=== PATIENT | male | born 1970 | race Caucasian/White ===

== ENCOUNTER 2017-10-19 16:45 | Observation (INO) | payer OTHER, SELFPAY ==
[2017-10-19] VITALS (15 sets, daily range): BP systolic 105–139; BP diastolic 55–76; PULSE 56–79; RESP 16–22; TEMP 36.6–37.1; O2SAT 95–97; BMI 26.6; BMI 26.9; BMI 27.0
--- NOTE | 2017-10-19 17:19 | EKG12_ITS ---
Test Reason : CP Blood Pressure : / mmHG Vent. Rate : 063 BPM Atrial Rate : 063 BPM P-R Int : 164 ms QRS Dur : 102 ms QT Int : 420 ms P-R-T Axes : 069 004 214 degrees QTc Int : 429 ms Normal sinus rhythm Nonspecific T wave abnormality Abnormal ECG Confirmed by RICKY LUCIANO, JESSE ([id number]), electronic news gathering editor JAY SALINAS ([id number]) on 10/21/2017 2:59:19 PM Referred By: URI/LEONIDAS Confirmed By:JESSE GARCÍA MD
--- NOTE | 2017-10-19 17:20 | RAD_ITS ---
STUDY: X-RAY CHEST REASON FOR EXAM: Male, 47 years old. Chest pain TECHNIQUE: Single AP portable view of the chest. COMPARISON: The prior study of 07/13/2017 FINDINGS: mind reader leads are seen. The lungs are clear and expanded. There is no demonstrated pleural abnormality. Normal size heart. Normal mediastinum and rogelio. Normal visualized pulmonary arteries. Normal visualized aortic arch and descending thoracic aorta. Normal visualized thoracic spine. Normal visualized ribs, clavicles, and shoulders. There is no demonstrated abnormality of the visualized soft tissue structures of the upper abdomen. RAD/Chest 1 View (Portable) IMPRESSION: Normal x-ray examination of the chest. Electronically Signed: Malachi Shah MD at 17:45 EDT , Service support ,
--- NOTE | 2017-10-19 17:23 | ED.DCSUM_ITS ---
- ER Visit Summary Date of Service: 10/19/17 Chief Complaint: Chest pain History of Present Illness: The patient is a 47 M chest pain started this morning at 8 AM. States pressure sensation with no radicular symptoms. States mild dyspnea. No nausea or diaphoresis. Symptoms went away, however return at 1120 waxing waning since then. Pain is currently 4 out of 10. No history of hypertension, diabetes, hypercholesteremia, tobacco or family history. He does have a history of neuroblastoma as a child along with renal cell carcinoma with a right nephrectomy. Chemo last done June 2013. No history of DVT or PE. was admitted in July for similar symptoms with a workup. Found to have echocardiogram with an EF of 25%. Stress test was negative. He states he has a follow-up with cardiology at [facility] Dr. Jaquez for repeat echocardiogram. No heart cath in the past. Physical Examination: General: Alert and oriented ?3, no acute distress HEENT: Normocephalic, atraumatic. Moist mucosa membranes Neck: supple, nontender. Cardiovascular: Regular rate and rhythm, no murmurs Respiratory: Normal breath sounds, symmetric, no distress Abdomen: Soft, nontender, nondistended Extremities: Nontender, no edema, pulses intact ?4 Neuro: no focal neurological deficits. Test Results: EKG: Sinus rate of 63, no ST changes. T-wave inversions on inferior lateral leads. Cardiac workup negative. Chest x-ray negative. Emergency Department Course and Treatment: Patient with chronic EKG changes from comparison in July. I did evaluate records noting confirm global hypokinesis in July with EF of 25%. Cardiac workup negative. Aspirin nitro given. Patient went down to 1 after nitro series, nitro paste was placed. Head CT obtained due to his complaints of stuttering and off balance with cancer history. Return with no acute findings. He has no focal neurological deficits. I did speak with covering international flight attendant, Dr. Blanton, recommended with his cardiomyopathy is high risk. Recommended serial troponins and for Dr. Son to see him tomorrow for recommendations. Discussed with hospitalist, Dr. Dennison who will admit for inpatient management. Treatment Plan: [] Disposition: Admission Impression: 1. Acute chest pain 2. History of cardiomyopathy This note was generated with ScreenHitsation software. It may contain incorrect words, spelling, and punctuation that were not noted in review of the chart prior to signing ED Disposition - Plan for ED Patient: Disposition: Acute Care [facility] Chief Complaint: Chest Pain Diagnosis: Chest pain, History of cardiomyopathy Referrals: Waldo Rivas MD [NON-STAFF] -
[2017-10-19 17:33] LABS: Absolute Neutrophil Count 4.6 X10^3/uL (2.0-7.7); Basophil# 0.02 X10^3/uL; Basophil% 0.3 % (0-1); Eosinophil# 0.04 X10^3/uL; Eosinophils% 0.6 % (0-5); Hematocrit 40.6 % (40-54); Hemoglobin 14.7 g/dl (13.0-16.5); Lymphocyte % 27.6 % (19-41); Mean Corp Hgb Conc 36.2 g/gl (32-36); Mean Corpuscular Hgb 31.2 pg (27.0-32.0); Mean Corpuscular Volume 86.2 fL (80-94); Mean Platelet Vol. 10.2 fl (6.2-12.0); Monocyte# 0.55 X10^3/uL; Monocyte% 7.6 % (0-10); Neutrophil # 4.62 X10^3/uL (2.7-7.7); Neutrophil % 63.8 % (47-70); POSITIVE COUNT NO; POSITIVE DIFFERENTIAL NO; POSITIVE MORPHOLOGY NO; Platelet Count 281 K/mm3 (150-450); RBC Distribution Width CV 12.5 % (11.6-14.6); RBC Distribution Width SD 38.8 fl (35.1-43.9); Red Blood Count 4.71 M/mm3 (4.6-6.2); White Blood Count 7.2 K/mm3 (4.4-11.0)
[2017-10-19 17:44] LABS: Anion Gap 7 (5-15); BUN 30 mg/dL (7-18); BUN/Creat Ratio 21.6 RATIO (10-20); Calcium,Total 8.8 mg/dL (8.5-10.1); Chloride 103 mmol/L (98-107); Creatinine, Serum 1.39 mg/dL (0.70-1.30); EST Glomerular Filtration Rate 59 mL/min (>60); Est Glom Filt Rate - Afr Amer 71 mL/min (>60); Estimated Creatinine Clearance 60.56 ml/min; Glucose 126 mg/dL (74-106); Potassium 3.4 mmol/L (3.5-5.1); Sodium Level 140 mmol/L (136-145)
[2017-10-19] MEDS: Aspirin 81 MG TAB.CHEW 324 MG PO (17:48)
--- NOTE | 2017-10-19 17:49 | CT_ITS ---
STUDY: CT BRAIN WITHOUT CONTRAST REASON FOR EXAM: Male, 47 years old. Off-balance, chest pain RADIATION DOSAGE (If Supplied By Facility): CTDIvol = ( 44.99 ) mGy, DLP = ( 812.98 ) mGycm TECHNIQUE: Transaxial CT imaging of the brain was performed without administration of intravenous contrast material. Individualized dose optimization techniques were used for this CT. COMPARISON: None. FINDINGS: Normal soft tissue structures. There is evidence of an old right frontal craniotomy. Normal size ventricles and extra-axial spaces for the patient's age. Normal white matter tracts of the cerebral hemispheres. Normal basal ganglia and thalami. Normal brainstem. Normal cerebellum. There is no intracranial hemorrhage. There are no findings of an acute ischemic infarction. Normal visualized paranasal sinuses. CT/Brain/Head without Contrast IMPRESSION: Old right craniotomy. The study is otherwise unremarkable. Electronically Signed: Malachi Shah MD at 19:02 EDT , Service support ,
[2017-10-19] MEDS: 0.9% Normal Saline 1,000 ML 150 ML IV (17:50)
[2017-10-19] MEDS: Nitroglycerin Oint 1 INCH PACKET TRANSDERM. (18:54)
--- NOTE | 2017-10-19 19:13 | PCM.HP.STD ---
Problem List (1) Neuroblastoma Status: Chronic (2) HTN (hypertension) Status: Chronic Qualifiers: Hypertension type: essential hypertension Qualified Code(s): I10 - Essential (primary) hypertension (3) Hypogonadism Status: Chronic (4) Non-ischemic cardiomyopathy Status: Chronic (5) Renal cell carcinoma Status: Chronic Qualifiers: Laterality: left Qualified Code(s): C64.2 - Malignant neoplasm of left kidney, except renal pelvis (6) Solitary kidney Status: Chronic (7) Chest pain Status: Acute Qualifiers: Chest pain type: unspecified Qualified Code(s): R07.9 - Chest pain, unspecified History of Present Illness Date of Admission: 10/19/17 Chief Complaint: Chest Pain The patient is a 47 y/o M w/ PMHx: Non-ischemic cardiomyopathy, Neuroblastoma in youth s/p craniotomy, Solitary Kidney, Renal cell carcinoma s/p R nephrectomy, HTN, Hypothyroidism, s/p renal gland resection maintained on testosterone supplementation who presents to the [facility] ED on 10/19/17 with mid-sternal region chest discomfort, described as pressure sensation in addition to occasional sharp focal central stabbing discomfort which is short in duration, no radiation, associated mild nausea and dyspnea, intermittent x 2 days, upon presentation to the ED rated 8/10 in intensity but resolved with NG administration-->1/10 with short burst 3/4 that last seconds and resolve. He notes this episode is similar but less severe than 07/2017 chest pain presentation. He at that time also notes having mild confusion and was anxious which is similar to current presentation with his discomfort. He does admit to increased stress recently. 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 In the ED work-up included AF, HR 70-->60s, BP 118.75, RR 16, 96% on RA, unremarkable CBC, BMP w/ K 3.4, BUN/Cr 30/1.39, glucose 126, trop < 0.02, unremarkable CXR, CT brain w/ prior R craniotomy, EKG w/ SR with chronic stable inferiolateral T wave inversions. In the ED patient administered 1L NS, nitrobid, NG SL, ASA. Past Medical History Past Medical History (Chronic Problems): Chronic Problems (Last Reviewed 08/01/17 @ 13:48 by Calos Son MD) Neuroblastoma (Chronic) HTN (hypertension) (Chronic) Hypogonadism (Chronic) Dizziness (Chronic) Dyspnea (Chronic) Non-ischemic cardiomyopathy (Chronic) Renal cell carcinoma (Chronic) Solitary kidney (Chronic) Allergies Opioids - Morphine Analogues Adverse Reaction (Verified 10/19/17 16:46) Other N/V/HALLUCINATIONS sedation Adverse Reaction (Uncoded 10/19/17 16:46) Other SLOW TO COME OUT OF Home Medications: Ambulatory Orders Medication Instructions Recorded Anastrozole [Arimidex] 0.5 mg PO SUWEFR 07/13/17 Testosterone Cypionate 0.4 ml IM QWEEK 07/13/17 Thyroid [[place] Thyroid] 90 mg PO DAILY 07/13/17 Lisinopril [Zestril] 2.5 mg PO DAILY #30 tab 07/14/17 torsemide 20 mg tablet 20 mg PO QDAY 08/01/17 Carvedilol [Coreg (Beta Vince)] 6.25 mg PO BID 10/19/17 Eplerenone [Eplerenone] 25 mg PO DAILY 10/19/17 Surgical History: - - R Neprectomy, adrenalectomy, craniotomy. Psychiatric History: No pertinent psych hx Lives: With Family Smoking Status: Never smoker Alcohol: None Drugs: None - *Family History Paternal History Items: No pertinent history Maternal History Items: No pertinent history Review of Systems Constitutional: Reports: Fatigue. Denies: Chills, Fever, Weight Change HEENT: Denies: Head Aches, Sinus Congestion, Sinus Drainage Cardiovascular: Reports: Chest Pain, Chest Pressure. Denies: Palpitations Respiratory: Reports: Shortness of Breath, Shortness of breath at rest, Shortness of breath upon exertion. Denies: Cough, Sputum production Gastrointestinal: Reports: Nausea. Denies: Abdominal Pain, Vomiting Genitourinary: Denies: Dysuria Musculoskeletal: Denies: Joint Pain, Joint Tenderness Skin: Denies: Rash, Wounds Neurological: Denies: Numbness, Tingling, Focal weakness Psychiatric: Reports: Anxiety. Denies: Depression, Homicidal Ideations, Suicidal Ideations Hematologic/ Lymphatic: Denies: Easy Bruising, Easy Bleeding VTE Information - Inpt Only VTE Present on Admission: No VTE Mechan Device Prophylaxis: SCD's VTE Pharm Prophylaxis ordered?: Yes Patient Problems: Active and Suspected Problems (Last Reviewed 08/01/17 @ 13:48 by Calos Son MD) Chest pain (Acute) History of cardiomyopathy (Acute) Subjective: Seated upright in the ED bed, mildly anxious, notes chest pain has improved, 07/16. Objective: Physical Examination: General: awake, alert, oriented x 3 and cooperative, seated upright in the ED bed in no apparent distress, mildly anxious. Skin: normal color, turgor, no icterus, cyanosis. HEENT: AT/NC, EOMI, PERRLA, MMM, no carotid bruits or JVD noted. Lungs: CTA bilaterally, moderate effort, mild decrease BL bases, no rales, ronchi or wheezing. Heart: Tegular rate and rhythm; no gallop, rub audible. Abdomen: soft, NTTP, ND, normal BS, no HSM. Extremities: no cyanosis, clubbing, or edema. Neurological: patient awake, alert, oriented x 3; cognitive function intact; pupils equally reactive to light and accomodation; cranial nerves II-XII grossly normal, moving all 4 extremities, no focal deficits, strength preserved. Psychiatric: affect appears mildly anxious, notes increased stress recently, no acute evidence of depressive feelings. - Physical Exam Vital Signs Temp Pulse Resp BP Pulse Ox 98.8 F 60 16 109/68 96 10/19/17 16:46 10/19/17 18:54 10/19/17 17:58 10/19/17 18:54 10/19/17 17:58 Oxygen Delivery Method Room Air Weight: 165 lb Body Mass Index (BMI) 26.6 Laboratory Tests Past 24 Hrs 10/19/17 10/19/17 16:59 16:59 WBC 7.2 RBC 4.71 Hgb 14.7 Hct 40.6 MCV 86.2 MCH 31.2 MCHC 36.2 H RDW 12.5 RDW Differential 38.8 Plt Count 281 MPV 10.2 Immature Gran % (Auto) 0.100 Neut % (Auto) 63.8 Lymph % (Auto) 27.6 Branch % (Auto) 7.6 Eos % (Auto) 0.6 Baso % (Auto) 0.3 Absolute Neuts (auto) 4.6 Absolute Lymphs (auto) 2.00 Total Counted Not Reportable Sodium 140 Potassium 3.4 L Chloride 103 Carbon Dioxide 30.0 Anion Gap 7 BUN 30 H Creatinine 1.39 H Estim Creat Clear Calc 60.56 Est GFR (MDRD) Af Amer 71 Est GFR (MDRD) Non-Af 59 L BUN/Creatinine Ratio 21.6 H Glucose 126 H Calcium 8.8 Troponin I < 0.02 Assessment/Plan Active and Suspected Problems (Last Reviewed 08/01/17 @ 13:48 by Calos Son MD) Chest pain (Acute) History of cardiomyopathy (Acute) The patient is a 47 y/o M w/ PMHx: Non-ischemic cardiomyopathy, Neuroblastoma in youth s/p craniotomy, Solitary Kidney, Renal cell carcinoma s/p R nephrectomy, HTN, Hypothyroidism, s/p renal gland resection maintained on testosterone supplementation who presents to the [facility] ED on 10/19/17 with mid-sternal region chest discomfort, described as pressure sensation, no radiation, associated mild nausea and dyspnea, intermittent x 2 days, upon presentation to the ED rated 8/10 in intensity but resolved with NG administration. (1) Chest Pain: EKG in ED w/ SR with chronic stable inferiolateral T wave inversions, CXR w/ no acute process, initial trop normal. Will admit to PCU, place on a monitored bed to assure no acute myocardial infarction with serial cardiac enzymes and EKGs. Per discussion with ED who spoke with Dr. Blanton, Cardiology, will place Cardiology consult, obtain repeat ECHO, avoid stress testing secondary to underlying cardiomyopathy suspected secondary to his chemotherapy. ASA, NG. FLP in AM. Mag pending. (2) Non-ischemic Cardiomyopathy: Suspected secondary to patient chemotherapy, noted 07/2017 ECHO w/ EF 25%, no catheterization at that time, global hypokinesis, following w/ [facility], planned repeat ECHO secondary to cardiomyopathy secondary to chemotherapy. As noted above, repeat ECHO in AM. Maintain on asa, ACEI, coreg, lasix. (3) Neuroblastoma: Noted in youth, s/p craniotomy, CT head without acute findings as noted. (4) Solitary Kidney, Renal cell carcinoma: s/p R nephrectomy, admission BUN/Cr 30/1.39, baseline Cr 1.1, given IVFs in the ED, repeat BMP in AM. (5) Hypokalemia: Admission K+ 3.4, supplementation given, repeat level in AM. (6) Hypothyroidism: Continue home armour regimen. (7) Hypertension: Continue home regimen including lisinopril, coreg, lasix, PRN hydralazine. (8) Hypogonadism: s/p renal gland resection, maintained on testosterone and arimidex supplementation. (9) DVT Prophylaxis: SCDs, heparin. Code Visit OBSV E&M: 81301 Initial observation care L3
--- NOTE | 2017-10-19 19:26 | HP.PCM_ITS ---
Problem List (1) Neuroblastoma Status: Chronic (2) HTN (hypertension) Status: Chronic Qualifiers: Hypertension type: essential hypertension Qualified Code(s): I10 - Essential (primary) hypertension (3) Hypogonadism Status: Chronic (4) Non-ischemic cardiomyopathy Status: Chronic (5) Renal cell carcinoma Status: Chronic Qualifiers: Laterality: left Qualified Code(s): C64.2 - Malignant neoplasm of left kidney, except renal pelvis (6) Solitary kidney Status: Chronic (7) Chest pain Status: Acute Qualifiers: Chest pain type: unspecified Qualified Code(s): R07.9 - Chest pain, unspecified History of Present Illness Date of Admission: 10/19/17 Chief Complaint: Chest Pain The patient is a 47 y/o M w/ PMHx: Non-ischemic cardiomyopathy, Neuroblastoma in youth s/p craniotomy, Solitary Kidney, Renal cell carcinoma s/p R nephrectomy , HTN, Hypothyroidism, s/p renal gland resection maintained on testosterone supplementation who presents to the [facility] ED on 10/19/17 with mid-sternal region chest discomfort, described as pressure sensation in addition to occasional sharp focal central stabbing discomfort which is short in duration, no radiation , associated mild nausea and dyspnea, intermittent x 2 days, upon presentation to the ED rated 8/10 in intensity but resolved with NG administration-->1/10 with short burst 3/4 that last seconds and resolve. He notes this episode is similar but less severe than 07/2017 chest pain presentation. He at that time also notes having mild confusion and was anxious which is similar to current presentation with his discomfort. He does admit to increased stress recently. 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 In the ED work-up included AF, HR 70-->60s, BP 118.75, RR 16, 96% on RA, unremarkable CBC, BMP w/ K 3.4, BUN/Cr 30/1.39, glucose 126, trop < 0.02, unremarkable CXR, CT brain w/ prior R craniotomy, EKG w/ SR with chronic stable inferiolateral T wave inversions. In the ED patient administered 1L NS, nitrobid, NG SL, ASA. Past Medical History Past Medical History (Chronic Problems): Chronic Problems (Last Reviewed 08/01/17 @ 13:48 by Calos Son MD) Neuroblastoma (Chronic) HTN (hypertension) (Chronic) Hypogonadism (Chronic) Dizziness (Chronic) Dyspnea (Chronic) Non-ischemic cardiomyopathy (Chronic) Renal cell carcinoma (Chronic) Solitary kidney (Chronic) Allergies Opioids - Morphine Analogues Adverse Reaction (Verified 10/19/17 16:46) Other N/V/HALLUCINATIONS sedation Adverse Reaction (Uncoded 10/19/17 16:46) Other SLOW TO COME OUT OF Home Medications: Ambulatory Orders Medication Instructions Recorded Anastrozole [Arimidex] 0.5 mg PO SUWEFR 07/13/17 Testosterone Cypionate 0.4 ml IM QWEEK 07/13/17 Thyroid [[place] Thyroid] 90 mg PO DAILY 07/13/17 Lisinopril [Zestril] 2.5 mg PO DAILY #30 tab 07/14/17 torsemide 20 mg tablet 20 mg PO QDAY 08/01/17 Carvedilol [Coreg (Beta Vince)] 6.25 mg PO BID 10/19/17 Eplerenone [Eplerenone] 25 mg PO DAILY 10/19/17 Surgical History: - - R Neprectomy, adrenalectomy, craniotomy. Psychiatric History: No pertinent psych hx Lives: With Family Smoking Status: Never smoker Alcohol: None Drugs: None - *Family History Paternal History Items: No pertinent history Maternal History Items: No pertinent history Review of Systems Constitutional: Reports: Fatigue. Denies: Chills, Fever, Weight Change HEENT: Denies: Head Aches, Sinus Congestion, Sinus Drainage Cardiovascular: Reports: Chest Pain, Chest Pressure. Denies: Palpitations Respiratory: Reports: Shortness of Breath, Shortness of breath at rest, Shortness of breath upon exertion. Denies: Cough, Sputum production Gastrointestinal: Reports: Nausea. Denies: Abdominal Pain, Vomiting Genitourinary: Denies: Dysuria Musculoskeletal: Denies: Joint Pain, Joint Tenderness Skin: Denies: Rash, Wounds Neurological: Denies: Numbness, Tingling, Focal weakness Psychiatric: Reports: Anxiety. Denies: Depression, Homicidal Ideations, Suicidal Ideations Hematologic/ Lymphatic: Denies: Easy Bruising, Easy Bleeding VTE Information - Inpt Only VTE Present on Admission: No VTE Mechan Device Prophylaxis: SCD's VTE Pharm Prophylaxis ordered?: Yes Patient Problems: Active and Suspected Problems (Last Reviewed 08/01/17 @ 13:48 by Calos Son MD ) Chest pain (Acute) History of cardiomyopathy (Acute) Subjective: Seated upright in the ED bed, mildly anxious, notes chest pain has improved, . Objective: Physical Examination: General: awake, alert, oriented x 3 and cooperative, seated upright in the ED bed in no apparent distress, mildly anxious. Skin: normal color, turgor, no icterus, cyanosis. HEENT: AT/NC, EOMI, PERRLA, MMM, no carotid bruits or JVD noted. Lungs: CTA bilaterally, moderate effort, mild decrease BL bases, no rales, ronchi or wheezing. Heart: Tegular rate and rhythm; no gallop, rub audible. Abdomen: soft, NTTP, ND, normal BS, no HSM. Extremities: no cyanosis, clubbing, or edema. Neurological: patient awake, alert, oriented x 3; cognitive function intact; pupils equally reactive to light and accomodation; cranial nerves II-XII grossly normal, moving all 4 extremities, no focal deficits, strength preserved. Psychiatric: affect appears mildly anxious, notes increased stress recently, no acute evidence of depressive feelings. - Physical Exam Vital Signs Temp Pulse Resp BP Pulse Ox 98.8 F 60 16 109/68 96 10/19/17 16:46 10/19/17 18:54 10/19/17 17:58 10/19/17 18:54 10/19/17 17:58 Oxygen Delivery Method Room Air Weight: 165 lb Body Mass Index (BMI) 26.6 Laboratory Tests Past 24 Hrs 10/19/17 10/19/17 16:59 16:59 WBC 7.2 RBC 4.71 Hgb 14.7 Hct 40.6 MCV 86.2 MCH 31.2 MCHC 36.2 H RDW 12.5 RDW Differential 38.8 Plt Count 281 MPV 10.2 Immature Gran % (Auto) 0.100 Neut % (Auto) 63.8 Lymph % (Auto) 27.6 [place] % (Auto) 7.6 Eos % (Auto) 0.6 Baso % (Auto) 0.3 Absolute Neuts (auto) 4.6 Absolute Lymphs (auto) 2.00 Total Counted Not Reportable Sodium 140 Potassium 3.4 L Chloride 103 Carbon Dioxide 30.0 Anion Gap 7 BUN 30 H Creatinine 1.39 H Estim Creat Clear Calc 60.56 Est GFR (MDRD) Af Amer 71 Est GFR (MDRD) Non-Af 59 L BUN/Creatinine Ratio 21.6 H Glucose 126 H Calcium 8.8 Troponin I < 0.02 Assessment/Plan Active and Suspected Problems (Last Reviewed 08/01/17 @ 13:48 by Calos Son MD ) Chest pain (Acute) History of cardiomyopathy (Acute) The patient is a 47 y/o M w/ PMHx: Non-ischemic cardiomyopathy, Neuroblastoma in youth s/p craniotomy, Solitary Kidney, Renal cell carcinoma s/p R nephrectomy , HTN, Hypothyroidism, s/p renal gland resection maintained on testosterone supplementation who presents to the [facility] ED on 10/19/17 with mid-sternal region chest discomfort, described as pressure sensation, no radiation, associated mild nausea and dyspnea, intermittent x 2 days, upon presentation to the ED rated 8/10 in intensity but resolved with NG administration. (1) Chest Pain: EKG in ED w/ SR with chronic stable inferiolateral T wave inversions, CXR w/ no acute process, initial trop normal. Will admit to PCU, place on a monitored bed to assure no acute myocardial infarction with serial cardiac enzymes and EKGs. Per discussion with ED who spoke with Dr. Blanton, Cardiology, will place Cardiology consult, obtain repeat ECHO, avoid stress testing secondary to underlying cardiomyopathy suspected secondary to his chemotherapy. ASA, NG. FLP in AM. Mag pending. (2) Non-ischemic Cardiomyopathy: Suspected secondary to patient chemotherapy, noted 07/2017 ECHO w/ EF 25%, no catheterization at that time, global hypokinesis, following w/ [facility], planned repeat ECHO secondary to cardiomyopathy secondary to chemotherapy. As noted above, repeat ECHO in AM. Maintain on asa, ACEI, coreg, lasix. (3) Neuroblastoma: Noted in youth, s/p craniotomy, CT head without acute findings as noted. (4) Solitary Kidney, Renal cell carcinoma: s/p R nephrectomy, admission BUN/Cr 30/1.39, baseline Cr 1.1, given IVFs in the ED, repeat BMP in AM. (5) Hypokalemia: Admission K+ 3.4, supplementation given, repeat level in AM. (6) Hypothyroidism: Continue home armour regimen. (7) Hypertension: Continue home regimen including lisinopril, coreg, lasix, PRN hydralazine. (8) Hypogonadism: s/p renal gland resection, maintained on testosterone and arimidex supplementation. (9) DVT Prophylaxis: SCDs, heparin. Code Visit OBSV E&M: 52377 Initial observation care L3
[2017-10-19 20:49] LABS: Magnesium 2.1 mg/dL (1.6-2.6)
[2017-10-19] MEDS: 0.9% Normal Saline 1,000 ML 100 ML IV (22:15)
[2017-10-19] MEDS: Heparin Injection (Vial) 5,000 UNIT/ML VIAL 5000 UNIT SC (22:16)
--- NOTE | 2017-10-19 23:05 | EKG12_ITS ---
Test Reason : CP Blood Pressure : / mmHG Vent. Rate : 055 BPM Atrial Rate : 055 BPM P-R Int : 176 ms QRS Dur : 098 ms QT Int : 424 ms P-R-T Axes : 079 048 105 degrees QTc Int : 405 ms Sinus bradycardia Nonspecific T wave abnormality Abnormal ECG When compared with ECG of 19-OCT-2017 16:52, MANUAL COMPARISON REQUIRED, DATA IS UNCONFIRMED Confirmed by MYRA TIMMONS ([id number]), city editor JAY SALINAS ([id number]) on 10/23/2017 3:04:37 PM Referred By: GOLDY Confirmed By:MYRA TIMMONS
[2017-10-19] MEDS: Acetaminophen 325 MG Tablet 650 MG PO (23:16)
[2017-10-20] VITALS (7 sets, daily range): BP systolic 97–117; BP diastolic 57–68; PULSE 56–78; RESP 14–16; TEMP 36.7–37; O2SAT 94–97
[2017-10-20 04:54] LABS: Color, Urine Yellow (Yellow); Glucose, Dipstick Normal (Normal); Ketone-Dipstick Negative (Negative); Leukocyte Esterase-Dipstick Negative /ul (Negative); Nitrite-Dipstick Negative (Negative); Occult Blood-Urine Negative /ul (Negative); Protein-Dipstick Negative (Negative); Specific Gravity, Urine 1.015 (1.002-1.030); Urine Bilirubin Dipstick Negative (Negative); Urine Clarity Clear (Clear); Urine Urobilinogen Normal (Normal)
--- NOTE | 2017-10-20 05:55 | EKG12_ITS ---
Test Reason : AM Blood Pressure : / mmHG Vent. Rate : 052 BPM Atrial Rate : 052 BPM P-R Int : 162 ms QRS Dur : 106 ms QT Int : 448 ms P-R-T Axes : 062 005 -77 degrees QTc Int : 416 ms Sinus bradycardia Otherwise normal ECG When compared with ECG of 19-OCT-2017 23:04, MANUAL COMPARISON REQUIRED, DATA IS UNCONFIRMED Confirmed by MYRA TIMMONS ([id number]), health editor JAY SALINAS ([id number]) on 10/23/2017 3:05:23 PM Referred By: GOLDY Confirmed By:MYRA TIMMONS
[2017-10-20 06:39] LABS: Hematocrit 37.4 % (40-54); Mean Corp Hgb Conc 34.8 g/gl (32-36); Mean Corpuscular Hgb 30.3 pg (27.0-32.0); Mean Corpuscular Volume 87.2 fL (80-94); Mean Platelet Vol. 9.4 fl (6.2-12.0); Platelet Count 221 K/mm3 (150-450); RBC Distribution Width CV 12.6 % (11.6-14.6); RBC Distribution Width SD 40.5 fl (35.1-43.9); Red Blood Count 4.29 M/mm3 (4.6-6.2); White Blood Count 5.5 K/mm3 (4.4-11.0)
[2017-10-20 06:45] LABS: Scan Indicated on CBC? Y/N NO
[2017-10-20 06:52] LABS: BUN 26 mg/dL (7-18); Creatinine, Serum 1.23 mg/dL (0.70-1.30); Glucose 90 mg/dL (74-106)
[2017-10-20 06:53] LABS: Anion Gap 6 (5-15); BUN/Creat Ratio 21.1 RATIO (10-20); Chloride 108 mmol/L (98-107); Cholesterol 135 mg/dL (200); EST Glomerular Filtration Rate 68 mL/min (>60); Est Glom Filt Rate - Afr Amer 82 mL/min (>60); Estimated Creatinine Clearance 70.91 ml/min; High Density Lipoprotein 38 mg/dL; Potassium 3.6 mmol/L (3.5-5.1); Sodium Level 142 mmol/L (136-145); Triglycerides 74 mg/dL; Very Low Density Lipoprotein 15 mg/dL (5-40)
[2017-10-20 06:55] LABS: International Normalized Ratio 1.1
--- NOTE | 2017-10-20 09:03 | CON.PCM_ITS ---
Reason for Consult Date of Consultation: 10/20/17 Reason for Consultation: Chest pain. 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 Pain has been episodes for the past few days. The intensity and frequency have increased over the last few hours. On Friday he experienced some chest discomfort which he described as sharp and then he also had some yesterday and so he presented to the emergency room last night and was given some sublingual nitroglycerin with improvement. You do remember that he does have a history of a cardiomyopathy with an estimated ejection fraction of 25% he has been followed by me as well as by Dr. Bethany Jaquez at the [facility] and has an appointment for her to see her on Friday for a repeat echocardiogram. During his last visit he underwent stress testing where he exercised to over 13 metabolic equivalents without any EKG changes or chest pain. During this admission no EKG changes were noted and there were no troponin elevations noted as well. He says it sometimes occurs when he takes in a deep breath. Past Medical History Allergies/Adverse Reactions: Allergies cat dander Allergy (Verified 10/19/17 20:24) Other Opioids - Morphine Analogues Adverse Reaction (Verified 10/19/17 16:46) Other N/V/HALLUCINATIONS sedation Adverse Reaction (Uncoded 10/19/17 16:46) Other SLOW TO COME OUT OF Home Medications: Ambulatory Orders Medication Instructions Recorded Anastrozole [Arimidex] 0.5 mg PO SUWEFR 07/13/17 Testosterone Cypionate 0.4 ml IM QWEEK 07/13/17 Thyroid [[place] Thyroid] 90 mg PO DAILY 07/13/17 torsemide 20 mg tablet 20 mg PO QDAY 08/01/17 Carvedilol [Coreg (Beta Vince)] 6.25 mg PO BID 10/19/17 Eplerenone [Eplerenone] 25 mg PO DAILY 10/19/17 Lisinopril [Zestril] 2.5 mg PO DAILY 10/19/17 Past Medical History (Chronic Problems): Chronic Problems (Last Reviewed 08/01/17 @ 13:48 by Calos Son MD) Neuroblastoma (Chronic) HTN (hypertension) (Chronic) Hypogonadism (Chronic) Dizziness (Chronic) Dyspnea (Chronic) Non-ischemic cardiomyopathy (Chronic) Renal cell carcinoma (Chronic) Solitary kidney (Chronic) Surgical History: - - R Neprectomy, adrenalectomy, craniotomy. Psychiatric History: No pertinent psych hx - *Family History Paternal History Items: No pertinent history Maternal History Items: No pertinent history Lives: With Family Smoking Status: Never smoker Alcohol: None Drugs: None Review of Systems - Review of Systems General: Denies: Fever, Night Sweats, Fatigue Cardiovascular: Reports: Chest Discomfort. Denies: Shortness of Breath, Orthopnea, PND, Peripheral Edema, Palpitations, Lightheadedness, Dizziness, Near Syncope, Syncope Respiratory: Denies: Cough, Sputum Production, Hemoptysis Gastrointestinal: Denies: Hematemesis, Hematochezia, Melena Genitourinary: Denies: Dysuria, Hematuria Skin: Denies: Rash Subjectve: Pleasant gentleman in no apparent distress. Objective: Vital Signs Temp Pulse Resp BP Pulse Ox 98.0 F 62 16 97/57 L 94 10/20/17 05:04 10/20/17 07:00 10/20/17 05:04 10/20/17 05:04 10/20/17 08:05 Oxygen Delivery Method Room Air Weight: 172 lb 2.896 oz Body Mass Index (BMI) 26.9 Intake and Output for Last 24 Hours 10/18/17 10/19/17 10/20/17 23:59 23:59 23:59 Intake Total 474 / 474 564 / 564 Balance 474 / 474 564 / 564 General: Awake, Alert, Oriented x 3 HEENT: PERRL, EOMI, Sclera Non Icteric Neck: Supple, Good ROM, No Lymph Node Enlargement Lungs: Clear to auscultation Cardiovascular: Regular Rhythm, Normal S1, Normal S2, No Murmurs, No Rubs, No Gallops Vascular: No Carotid Bruits, Normal Femoral Pulses, Normal Radial Pulses, Normal Dorsalis Pedal Pulse, Normal Posterior Tibial Pulses Abdomen: Bowel Sounds Present, Soft, Non Tender, No HSM, No Organomegaly Extremities: No Cyanosis, No Clubbing, No edema Neurological: No Focal Motor or Sensory Deficit 10/19/17 21:05: Troponin I < 0.02 10/20/17 01:09: Troponin I < 0.02 10/20/17 03:43: Urine Color Yellow, Urine Clarity Clear, Urine pH 6.0, Ur Specific [place] 1.015, Urine Protein Negative, Urine Glucose (UA) Normal, Urine Ketones Negative, Urine Occult Blood Negative, Urine Nitrite Negative, Urine Bilirubin Negative, Urine Urobilinogen Normal, Ur Leukocyte Esterase Negative 10/20/17 06:30: Sodium 142, Potassium 3.6, Chloride 108 H, Carbon Dioxide 28.0, Anion Gap 6, BUN 26 H, Creatinine 1.23, Est GFR (MDRD) Af Amer 82, Est GFR (MDRD ) Non-Af 68, BUN/Creatinine Ratio 21.1 H, Glucose 90, Calcium 8.0 L, Triglycerides 74, Cholesterol 135, LDL Cholesterol 82, VLDL Cholesterol 15, HDL Cholesterol 38 L 10/20/17 06:30: WBC 5.5, RBC 4.29 L, Hgb 13.0, Hct 37.4 L, MCV 87.2, MCH 30.3, MCHC 34.8, RDW 12.6, RDW Differential 40.5, Plt Count 221, MPV 9.4 10/20/17 06:30: Troponin I < 0.02 10/20/17 06:30: PT 14.0, INR 1.1, APTT 33.0 Rhythm: EKG: Sinus bradycardia with a rate of 52 bpm. Assessment/Plan 1. Atypical chest pain. He presents with atypical chest pain with no EKG changes as well as no cardiac enzyme abnormalities. With his recent stress test within the last 6 months I do have a high threshold to perform any additional testing. I do not think that this is coronary in origin and will continue to manage him with the medical therapy. 2. Cardiomyopathy He does have a history of cardiomyopathy and is being treated with beta-vince as well as prednisone. He is being followed at the [facility] with us. He is due for an echocardiogram there in the next 5 days. I will therefore suggest that we discontinue/cancel the echocardiogram here and have him performed over there. This would not make any changes to his therapy. He can be discharged later this morning for outpatient follow-up. I discussed the above with him and his . Thank you for allowing me to participate in the care of your patient. Please don't hesitate to call if any issues arise
[2017-10-20] MEDS: Carvedilol 6.25 MG Tablet PO (09:12)
[2017-10-20] MEDS: Thyroid 60 MG Tablet 90 MG PO (09:12)
[2017-10-20] MEDS: Aspirin E.C. 81 MG Tablet PO (09:12)
[2017-10-20] MEDS: Lisinopril 2.5 MG Tablet PO (09:13)
[2017-10-20] MEDS: Eplerenone 25 MG Tablet PO (09:13)
--- NOTE | 2017-10-20 13:15 | PCM.PN.HOSP ---
Patient Problems: Active and Suspected Problems (Last Reviewed 08/01/17 @ 13:48 by Calos Son MD) Chest pain (Acute) History of cardiomyopathy (Acute) Subjective: No further chest pain. Vitals/I&O's: Vital Signs Temp Pulse Resp BP Pulse Ox 37.0 C 68 16 114/58 L 95 10/20/17 09:06 10/20/17 11:00 10/20/17 09:06 10/20/17 09:06 10/20/17 09:06 Oxygen Delivery Method Room Air Weight: 78.1 kg Body Mass Index (BMI) 26.9 Intake and Output for Last 24 Hours 10/18/17 10/19/17 10/20/17 23:59 23:59 23:59 Intake Total 474 / 474 564 / 564 Balance 474 / 474 564 / 564 General: Alert, Cooperative, No apparent distress HEENT: Atraumatic, Normocephalic Laboratory Results 10/19/17 21:05: Troponin I < 0.02 10/20/17 01:09: Troponin I < 0.02 10/20/17 03:43: Urine Color Yellow, Urine Clarity Clear, Urine pH 6.0, Ur Specific [place] 1.015, Urine Protein Negative, Urine Glucose (UA) Normal, Urine Ketones Negative, Urine Occult Blood Negative, Urine Nitrite Negative, Urine Bilirubin Negative, Urine Urobilinogen Normal, Ur Leukocyte Esterase Negative 10/20/17 06:30: Sodium 142, Potassium 3.6, Chloride 108 H, Carbon Dioxide 28.0, Anion Gap 6, BUN 26 H, Creatinine 1.23, Estim Creat Clear Calc 70.91, Est GFR (MDRD) Af Amer 82, Est GFR (MDRD) Non-Af 68, BUN/Creatinine Ratio 21.1 H, Glucose 90, Calcium 8.0 L, Triglycerides 74, Cholesterol 135, LDL Cholesterol 82, VLDL Cholesterol 15, HDL Cholesterol 38 L 10/20/17 06:30: WBC 5.5, RBC 4.29 L, Hgb 13.0, Hct 37.4 L, MCV 87.2, MCH 30.3, MCHC 34.8, RDW 12.6, RDW Differential 40.5, Plt Count 221, MPV 9.4 10/20/17 06:30: Troponin I < 0.02 10/20/17 06:30: PT 14.0, INR 1.1, APTT 33.0 Current Medications Acetaminophen (Tylenol) 650 mg PO Q6H PRN PRN PRN Reason: Non-cardiac pain (mod-severe) Last Admin: 10/19/17 23:16 Dose: 650 mg Al Hydroxide/Mg Hydroxide (Mylanta Ii) 30 ml PO Q6H PRN PRN PRN Reason: Gastric burning Anastrozole (Arimidex) 0.5 mg PO SuWeFr@1000 [facility] Aspirin (Ecotrin) 81 mg PO DAILY@0800 [facility] Last Admin: 10/20/17 09:12 Dose: 81 mg Carvedilol (Coreg) 6.25 mg PO BID [facility] Last Admin: 10/20/17 09:12 Dose: 6.25 mg Eplerenone (Inspra) 25 mg PO DAILY [facility] Last Admin: 10/20/17 09:13 Dose: 25 mg Furosemide (Lasix) 40 mg PO DAILY [facility] Last Admin: 10/20/17 09:15 Dose: Not Given Heparin Sodium (Porcine) (Heparin Na) 5,000 unit SC BID [facility] Last Admin: 10/20/17 09:13 Dose: Not Given Hydralazine HCl (Apresoline Iv) 10 mg IV Q4H PRN PRN PRN Reason: SBP > 160 Lisinopril (Zestril) 2.5 mg PO DAILY [facility] Last Admin: 10/20/17 09:13 Dose: 2.5 mg Magnesium Hydroxide (Milk Of Magnesia) 30 ml PO DAILY PRN PRN Reason: Constipation Nitroglycerin (Nitrostat) 0.4 mg SUBLINGUAL Q5M PRN PRN Reason: CHEST PAIN Ondansetron HCl (Zofran) 4 mg IV Q8H PRN PRN PRN Reason: NAUSEA Promethazine HCl (Phenergan) 12.5 mg IV Q6H PRN PRN PRN Reason: NAUSEA/VOMITING Sodium Chloride () 5 - 30 ml IV UD PRN PRN Reason: SALINE FLUSH Thyroid ([place] Thyroid) 90 mg PO DAILY [facility] Last Admin: 10/20/17 09:12 Dose: 90 mg Medical Necessity - Tobacco Use Smoking Status: Never smoker Assessment/Plan Active and Suspected Problems (Last Reviewed 08/01/17 @ 13:48 by Calos Son MD) Chest pain (Acute) History of cardiomyopathy (Acute) 1. Chest pain EKGs and troponins were negative Seen by Dr. Son, and given the patient's negative stress test back in July, does not feel additional stress test is needed at this time. Patient is to follow-up with Dr. Jaquez at the [facility] on October 24. At that time, patient is to have an echocardiogram to see if patient has an improvement of his ejection fraction, which previously was 20-25%. Patient asked to the point he questions that he should ask his screwdown operator at that time but told her to panel what his echocardiogram shows and if the screwdown operator feels very comfortable with this is chemotherapy induced cardiomyopathy or if it could be a possible some level of ischemia and then left heart catheterization may be warranted but once again I deferred to his screwdown operator's discretion.
--- NOTE | 2017-10-20 13:18 | PN_ITS ---
Patient Problems: Active and Suspected Problems (Last Reviewed 08/01/17 @ 13:48 by Calos Son MD ) Chest pain (Acute) History of cardiomyopathy (Acute) Subjective: No further chest pain. Vitals/I&O's: Vital Signs Temp Pulse Resp BP Pulse Ox 37.0 C 68 16 114/58 L 95 10/20/17 09:06 10/20/17 11:00 10/20/17 09:06 10/20/17 09:06 10/20/17 09:06 Oxygen Delivery Method Room Air Weight: 78.1 kg Body Mass Index (BMI) 26.9 Intake and Output for Last 24 Hours 10/18/17 10/19/17 10/20/17 23:59 23:59 23:59 Intake Total 474 / 474 564 / 564 Balance 474 / 474 564 / 564 General: Alert, Cooperative, No apparent distress HEENT: Atraumatic, Normocephalic Laboratory Results 10/19/17 21:05: Troponin I < 0.02 10/20/17 01:09: Troponin I < 0.02 10/20/17 03:43: Urine Color Yellow, Urine Clarity Clear, Urine pH 6.0, Ur Specific [place] 1.015, Urine Protein Negative, Urine Glucose (UA) Normal, Urine Ketones Negative, Urine Occult Blood Negative, Urine Nitrite Negative, Urine Bilirubin Negative, Urine Urobilinogen Normal, Ur Leukocyte Esterase Negative 10/20/17 06:30: Sodium 142, Potassium 3.6, Chloride 108 H, Carbon Dioxide 28.0, Anion Gap 6, BUN 26 H, Creatinine 1.23, Estim Creat Clear Calc 70.91, Est GFR ( MDRD) Af Amer 82, Est GFR (MDRD) Non-Af 68, BUN/Creatinine Ratio 21.1 H, Glucose 90, Calcium 8.0 L, Triglycerides 74, Cholesterol 135, LDL Cholesterol 82 , VLDL Cholesterol 15, HDL Cholesterol 38 L 10/20/17 06:30: WBC 5.5, RBC 4.29 L, Hgb 13.0, Hct 37.4 L, MCV 87.2, MCH 30.3, MCHC 34.8, RDW 12.6, RDW Differential 40.5, Plt Count 221, MPV 9.4 10/20/17 06:30: Troponin I < 0.02 10/20/17 06:30: PT 14.0, INR 1.1, APTT 33.0 Current Medications Acetaminophen (Tylenol) 650 mg PO Q6H PRN PRN PRN Reason: Non-cardiac pain (mod-severe) Last Admin: 10/19/17 23:16 Dose: 650 mg Al Hydroxide/Mg Hydroxide (Mylanta Ii) 30 ml PO Q6H PRN PRN PRN Reason: Gastric burning Anastrozole (Arimidex) 0.5 mg PO SuWeFr@1000 [facility] Aspirin (Ecotrin) 81 mg PO DAILY@0800 [facility] Last Admin: 10/20/17 09:12 Dose: 81 mg Carvedilol (Coreg) 6.25 mg PO BID [facility] Last Admin: 10/20/17 09:12 Dose: 6.25 mg Eplerenone (Inspra) 25 mg PO DAILY [facility] Last Admin: 10/20/17 09:13 Dose: 25 mg Furosemide (Lasix) 40 mg PO DAILY [facility] Last Admin: 10/20/17 09:15 Dose: Not Given Heparin Sodium (Porcine) (Heparin Na) 5,000 unit SC BID [facility] Last Admin: 10/20/17 09:13 Dose: Not Given Hydralazine HCl (Apresoline Iv) 10 mg IV Q4H PRN PRN PRN Reason: SBP > 160 Lisinopril (Zestril) 2.5 mg PO DAILY [facility] Last Admin: 10/20/17 09:13 Dose: 2.5 mg Magnesium Hydroxide (Milk Of Magnesia) 30 ml PO DAILY PRN PRN Reason: Constipation Nitroglycerin (Nitrostat) 0.4 mg SUBLINGUAL Q5M PRN PRN Reason: CHEST PAIN Ondansetron HCl (Zofran) 4 mg IV Q8H PRN PRN PRN Reason: NAUSEA Promethazine HCl (Phenergan) 12.5 mg IV Q6H PRN PRN PRN Reason: NAUSEA/VOMITING Sodium Chloride () 5 - 30 ml IV UD PRN PRN Reason: SALINE FLUSH Thyroid ([place] Thyroid) 90 mg PO DAILY [facility] Last Admin: 10/20/17 09:12 Dose: 90 mg Medical Necessity - Tobacco Use Smoking Status: Never smoker Assessment/Plan Active and Suspected Problems (Last Reviewed 08/01/17 @ 13:48 by Calos Son MD ) Chest pain (Acute) History of cardiomyopathy (Acute) 1. Chest pain * EKGs and troponins were negative * Seen by Dr. Son, and given the patient's negative stress test back in July, does not feel additional stress test is needed at this time. * Patient is to follow-up with Dr. Jaquez at the [facility] on October 24. * At that time, patient is to have an echocardiogram to see if patient has an improvement of his ejection fraction, which previously was 20-25%. * Patient asked to the point he questions that he should ask his profile shaper operator at that time but told her to panel what his echocardiogram shows and if the profile shaper operator feels very comfortable with this is chemotherapy induced cardiomyopathy or if it could be a possible some level of ischemia and then left heart catheterization may be warranted but once again I deferred to his profile shaper operator's discretion.
--- NOTE | 2017-10-20 13:19 | PCM.DC ---
- Discharge Diagnoses Current Active Problems: Current Active and Chronic Problems (Last Reviewed 08/01/17 @ 13:48 by Calos Son MD) Neuroblastoma (Chronic) HTN (hypertension) (Chronic) Hypogonadism (Chronic) Chest pain (Acute) History of cardiomyopathy (Acute) You will use the following diet at home:: Cardiac Your food should be the consistency of: Regular Call your doctor if you observe: Fever of 101 or Higher, Shortness of breath, Chest pain Instructions: ED Chest Pain NonCardiac Allergies/Adverse Reactions: Allergies cat dander Allergy (Verified 10/19/17 20:24) Other Opioids - Morphine Analogues Adverse Reaction (Verified 10/19/17 16:46) Other N/V/HALLUCINATIONS sedation Adverse Reaction (Uncoded 10/19/17 16:46) Other SLOW TO COME OUT OF Medications to take at Discharge Anastrozole [Arimidex] 0.5 mg PO SUWEFR 07/13/17 Testosterone Cypionate 0.4 ml IM QWEEK 07/13/17 Thyroid [[place] Thyroid] 90 mg PO DAILY 07/13/17 torsemide 20 mg tablet 20 mg PO QDAY 08/01/17 Carvedilol [Coreg (Beta Vince)] 6.25 mg PO BID 10/19/17 Eplerenone 25 mg PO DAILY 10/19/17 Lisinopril [Zestril] 2.5 mg PO DAILY 10/19/17 Primary Care Physician: Waldo Rivas MD [NON-STAFF] - Within 2 Weeks Please Follow Up With: sergey rosas When: 10/24/17 Proposed Discharge Date: 10/20/17
--- NOTE | 2017-10-20 13:20 | PCM.DC.SUM ---
Discharge Date and Diagnosis - Problem List Patient Problems: Active and Suspected Problems (Last Reviewed 08/01/17 @ 13:48 by Calos Son MD) Chest pain (Acute) History of cardiomyopathy (Acute) Date of Admission: 10/19/17 Date of Discharge: 10/20/17 - Primary Discharge Diagnosis Active and Suspected Problems (Last Reviewed 08/01/17 @ 13:48 by Calos Son MD) Chest pain (Acute) History of cardiomyopathy (Acute) - Secondary Discharge Diagnosis Chronic Problems (Last Reviewed 08/01/17 @ 13:48 by Calos Son MD) Neuroblastoma (Chronic) HTN (hypertension) (Chronic) Hypogonadism (Chronic) Dizziness (Chronic) Dyspnea (Chronic) Non-ischemic cardiomyopathy (Chronic) Renal cell carcinoma (Chronic) Solitary kidney (Chronic) Hospital Course and Treatment Imaging Results: Clinical Impression(s) from Imaging Studies Chest X-Ray 10/19/17 17:20 IMPRESSION: Normal x-ray examination of the chest. Electronically Signed: Malachi Shah MD at 17:45 EDT , Service support , Brain CT 10/19/17 17:49 IMPRESSION: Old right craniotomy. The study is otherwise unremarkable. Electronically Signed: Malachi Shah MD at 19:02 EDT , Service support , Operations: None Procedures: None Summary of Care Provided: The patient is a 47 year old M presents with chest pain. 1. Chest pain EKGs and troponins were negative Seen by Dr. Son, and given the patient's negative stress test back in July, does not feel additional stress test is needed at this time. Patient is to follow-up with Dr. Jaquez at the [facility] on October 24. At that time, patient is to have an echocardiogram to see if patient has an improvement of his ejection fraction, which previously was 20-25%. Patient asked to the point he questions that he should ask his altitude chamber technician at that time but told her to panel what his echocardiogram shows and if the altitude chamber technician feels very comfortable with this is chemotherapy induced cardiomyopathy or if it could be a possible some level of ischemia and then left heart catheterization may be warranted but once again I deferred to his altitude chamber technician's discretion.[] Discharge Diet: Low fat/ Low Cholesterol Discharge Activity: Return to Normal Activity Call your doctor if you observe: Fever of 101 or Higher, Shortness of breath, Chest pain Home Medications: Medications to take at Discharge Anastrozole [Arimidex] 0.5 mg PO SUWEFR 07/13/17 Testosterone Cypionate 0.4 ml IM QWEEK 07/13/17 Thyroid [[place] Thyroid] 90 mg PO DAILY 07/13/17 torsemide 20 mg tablet 20 mg PO QDAY 08/01/17 Carvedilol [Coreg (Beta Vince)] 6.25 mg PO BID 10/19/17 Eplerenone 25 mg PO DAILY 10/19/17 Lisinopril [Zestril] 2.5 mg PO DAILY 10/19/17 Primary Care Physician: Waldo Rivas MD [NON-STAFF] - Within 2 Weeks Please Follow Up With: sergey jaquez When: 10/24/17 Patient Instructions: ED Chest Pain NonCardiac Disposition: Home Minutes spent on discharge:: 32 Patient Condition:: Good Medical Necessity - Tobacco Use Smoking Status: Never smoker Meaningful Use Info Meaningful Use Diagnoses (Choose all that apply): None applicable Code Visit OBSV E&M: 97627 Observation care discharge
== END 2017-10-20 13:20 | disposition home or self-care (01) ==
LOC: ED 19:23 → PCU 19:39
PROVIDERS: Admitting Provider Family Medicine; Emergency Provider Emergency Medicine; Family Provider Legal Medicine; PCP Legal Medicine
DX: R07.89 Other chest pain (principal); E89.3 Postprocedural hypopituitarism; I10 Essential (primary) hypertension; I42.8 Other cardiomyopathies; R06.00 Dyspnea, unspecified; Z79.899 Other long term (current) drug therapy; Z85.528 Personal history of other malignant neoplasm of kidney; E87.6 Hypokalemia; E03.9 Hypothyroidism, unspecified
CPT/HCPCS: 36415; 70450; 71045; 80048; 80061; 81002; 83735; 84484; 85025; 85027; 85610; 85730; 93005; 96360; 96361; 96372; 99218; 99285; J7030; A4216; G0378

== ENCOUNTER → 2017-11-13 08:13 | Outpatient (CLI) | payer OTHER, SELFPAY ==
--- NOTE | 2017-11-13 08:15 | RAD_ITS ---
STUDY: X-RAY - ESOPHAGUS (BARIUM SWALLOW) WITH FLUOROSCOPY REASON FOR EXAM: Male, 47 years old. Chest pain. TECHNIQUE: 13 view(s) of the esophagus were obtained following swallowing of barium. FLUOROSCOPY TIME (if supplied): (0:28) minutes/seconds COMPARISON: None. FINDINGS: There is no demonstrated esophageal foreign body. There is no demonstrated stricture or mucosal abnormality. Normal gastroesophageal junction, without a demonstrated hiatal hernia. The patient ingested a 12 mm tablet of barium without any difficulty. Normal visualized aortic arch and descending thoracic aorta. Normal visualized pulmonary parenchyma. Normal visualized osseous structures of the thorax. RAD/Esophagus Only IMPRESSION: Normal plain film x-ray examination (barium swallow) of the esophagus. Electronically Signed: Altaf Leger MD at 8:59 EDT Tel [phone], Service support ,
== END ==
PROVIDERS: Family Provider Legal Medicine; PCP Legal Medicine; Visit Provider Legal Medicine
DX: R07.9 Chest pain, unspecified (principal); K22.4 Dyskinesia of esophagus
CPT/HCPCS: 74220

== ENCOUNTER 2018-05-26 15:48 | Emergency (ER) | payer OTHER, SELFPAY ==
[2018-05-26 15:50] VITALS: BP 124/82; PULSE 54; PULSE 56; RESP 17; RESP 18; TEMP 36.4; O2SAT 96; O2SAT 98; BMI 26.9
--- NOTE | 2018-05-26 16:12 | ED.DCSUM_ITS ---
- ER Visit Summary Date of Service: 05/26/18 Chief Complaint: Diarrhea History of Present Illness: The patient is a 48 M who went to a conference in [place] 16 days ago and developed abdominal pain and diarrhea while there. Patient was seen at an urgent care there and was given Zofran and IV fluids. Stool studies were performed and reportedly negative including negative C. difficile. Patient continue with diarrhea and was seen by his PCP on return home. Due to his cancer history he was placed on Cipro, Flagyl, and Lomotil. He had no change in the symptoms after the initial round of antibiotics so a second course of the same was given. He had repeat stool studies on the that were again negative. Patient does report occasional chills and fever. He has had some lightheadedness and dizziness. Patient has a history of neuroblastoma as well as renal cell carcinoma with prior right-sided nephrectomy. He also has cardiomyopathy. Physical Examination: Vital signs unremarkable. Patient is lying in bed no acute distress. Head neck examination reveals mildly dry mucous membranes. Heart is regular rate and rhythm. Lung sounds are clear. Abdomen is soft and nontender to palpation. Hypoactive bowel sounds are present throughout. Test Results: CBC is normal. Chemistry studies reveal a BUN of 31 and a creatinine of 1.48. The last labs I have available for comparison were from October with a creatinine of 1.23. LFTs significant for an ALT of 111 and AST of 65. Lipase is normal. CT flank reveals increased feces throughout the colon. There are sclerotic lesions noted in the pelvis and femur which may represent metastatic disease. Partial right nephrectomy is noted. There is a probable left renal cyst. Emergency Department Course and Treatment: Patient was given IV fluids and Zofran. Patient is not sure if his oncologist have been following the sclerotic lesions in the pelvis and femurs, but will take a copy of his report and imaging to his oncologist. At this time patient questions that his continued diarrhea may be side effect from the antibiotics. With no inflammation of the colon noted at this time I advised him to stop the antibiotics. He can continue the Lomotil and I suggested taking yogurt or other probiotic. Treatment Plan: [] Disposition: Discharge Impression: Diarrheal illness This note was generated with [employer] dictation software. It may contain incorrect words, spelling, and punctuation that were not noted in review of the chart prior to signing ED Disposition - Plan for ED Patient: Disposition: Home or Assisted Living Chief Complaint: Diarrhea Instructions: ED Diet Vomiting Diarrhea Referrals: Waldo Rivas MD [Primary Care Provider] -
[2018-05-26] MEDS: 0.9% Normal Saline 1,000 ML 1000 ML IV (16:29)
[2018-05-26] MEDS: Ondansetron 4 MG/2 ML Vial IV (16:29)
[2018-05-26 17:17] LABS: Absolute Lymphocyte Count 1.39 X10^3/ul (0.83-4.51); Absolute Neutrophil Count 5.6 X10^3/uL (2.0-7.7); Basophil# 0.04 X10^3/uL; Basophil% 0.5 % (0-1); Eosinophil# 0.13 X10^3/uL; Eosinophils% 1.6 % (0-5); Hematocrit 42.8 % (40-54); Hemoglobin 14.5 g/dl (13.0-16.5); Lymphocyte # 1.39 X10^3/ul (4.0); Lymphocyte % 17.3 % (19-41); Mean Corp Hgb Conc 33.9 g/gl (32-36); Mean Corpuscular Hgb 30.2 pg (27.0-32.0); Mean Corpuscular Volume 89.2 fL (80-94); Mean Platelet Vol. 10.1 fl (6.2-12.0); Monocyte# 0.86 X10^3/uL; Monocyte% 10.7 % (0-10); Neutrophil # 5.62 X10^3/uL (2.7-7.7); Neutrophil % 69.8 % (47-70); POSITIVE COUNT NO; POSITIVE DIFFERENTIAL NO; POSITIVE MORPHOLOGY NO; Platelet Count 326 K/mm3 (150-450); RBC Distribution Width CV 12.6 % (11.6-14.6); RBC Distribution Width SD 40.9 fl (35.1-43.9); White Blood Count 8.1 K/mm3 (4.4-11.0)
[2018-05-26 17:37] LABS: AST(SGOT) 65 U/L (15-37); Alanine Aminotransfer ALT/SGPT 111 U/L (16-61); Albumin, Serum 3.8 g/dL (3.2-5.0); Alkaline Phosphatase 80 U/L (45-117); Anion Gap 11 (5-15); BUN 31 mg/dL (7-18); BUN/Creat Ratio 20.9 RATIO (10-20); Bilirubin, Direct 0.18 mg/dL (0.00-0.30); Calcium,Total 8.9 mg/dL (8.5-10.1); Chloride 97 mmol/L (98-107); Creatinine, Serum 1.48 mg/dL (0.70-1.30); EST Glomerular Filtration Rate 54 mL/min (>60); Est Glom Filt Rate - Afr Amer 66 mL/min (>60); Estimated Creatinine Clearance 56.28 ml/min; Globulin 3.2 g/dL (2.2-4.2); Glucose 90 mg/dL (74-106); Lipase 148 U/L (73-393); Potassium 3.9 mmol/L (3.5-5.1); Sodium Level 139 mmol/L (136-145)
[2018-05-26] MEDS: 0.9% Normal Saline 1,000 ML 150 ML IV (17:44)
--- NOTE | 2018-05-26 17:52 | CT_ITS ---
STUDY: CT ABDOMEN AND PELVIS WITHOUT CONTRAST REASON FOR EXAM: Male, 48 years old. Abdominal pain and diarrhea for 16 days. History of renal cell carcinoma with partial right nephrectomy. RADIATION DOSAGE (If Supplied By Facility): CTDIvol = ( 7.25 ) mGy, DLP = ( 369.26 ) mGycm TECHNIQUE: Transaxial images were obtained from the dome of the diaphragm to the symphysis pubis without oral contrast, and without intravenous contrast. Sagittal and coronal images were reconstructed. Individualized dose optimization techniques were used for this CT. COMPARISON: None. FINDINGS: The visualized lung bases are unremarkable. The visualized portions of the heart are within normal limits. Normal liver. Normal gallbladder and extrahepatic biliary system. Normal spleen. There is a 1.3 cm splenule in the inferior splenic hilum. The pancreas is normal in size and contour. There are small calcifications near the pancreatic head. The right adrenal gland is not clearly visualized. There are surgical clips in its expected position. Normal left adrenal gland. There is cortical loss in the lower pole of the right kidney. There is no visualized mass. There is a small cortical calcification in the mid kidney. There is no hydronephrosis. Normal visualized right ureter. There appear to be small cysts in the mid left kidney. There is no hydronephrosis or renal calculi. Normal visualized left ureter. Normal visualized stomach. Normal small intestine. Feces is seen throughout the nondistended colon with mass or obstruction. The appendix is visualized and appears normal. Normal abdominal aorta. Normal inferior vena cava. Normal retroperitoneum. Normal urinary bladder. The prostate is normal in size with central calcifications. There is no pelvic lymphadenopathy or mass. No free air or free fluid is seen within the peritoneal cavity. There are minimal bilateral inguinal hernias of omental fat. Minimal left hydrocele. There is minimal degenerative changes of the lumbar spine. There are focal sclerotic lesions in both iliac adjacent to the sacroiliac joints. This is most marked on the right. There is a small focal area of sclerosis in the left femoral neck and right greater trochanter. CT/Abdomen/Pelvis without Cont IMPRESSION: 1. Increased feces throughout the colon without mass or obstruction. 2. Sclerotic lesions in the pelvis and femurs. Question metastatic disease. 3. Partial right nephrectomy. 4. Small right renal calculus. 5. Low attenuation areas in the left kidney thought to represent renal cysts. 6. Small calcifications in the pancreatic head without other abnormality. 7. Prosthetic calcifications. 8. Left hydrocele. Electronically Signed: Alexey Romeo DO at 18:54 EST Tel [phone], Service support ,
[2018-05-26 19:00] VITALS: RESP 16
--- NOTE | 2018-05-26 20:33 | ED.DEP ---
ED Disposition - Plan for ED Patient: Disposition: Home or Assisted Living Chief Complaint: Diarrhea Instructions: ED Diet Vomiting Diarrhea Referrals: Waldo Rivas MD [Primary Care Provider] -
[2018-05-26 20:50] VITALS: BP 118/66; PULSE 59; RESP 17; O2SAT 97
--- NOTE | 2018-05-26 20:50 | ED.RN ---
PT GIVEN WRITTEN AND VERBAL DISCHARGE INSTRUCTIONS, AND RADIOLOGY DISC. PT SIGNS CONSENT FOR MEDICAL RECORD. PT DENIES ANY FURTHER QUESTIONS. IV D/C AND COVERED WITH 2X2 GAUZE DRESSING AND PAPER TAPE. PT DRESSES SELF AND AMBULATES OUT OF DEPT WITH .
== END 2018-05-26 20:52 | disposition home or self-care (01) ==
PROVIDERS: Emergency Provider Emergency Medicine; Family Provider Legal Medicine; PCP Legal Medicine
DX: R19.7 Diarrhea, unspecified (principal); R10.9 Unspecified abdominal pain; R11.2 Nausea with vomiting, unspecified; R42 Dizziness and giddiness; R68.83 Chills (without fever); M89.9 Disorder of bone, unspecified; I42.9 Cardiomyopathy, unspecified; I25.10 Atherosclerotic heart disease of native coronary artery without angina pectoris; I10 Essential (primary) hypertension; Z85.9 Personal history of malignant neoplasm, unspecified; Z85.528 Personal history of other malignant neoplasm of kidney; Z90.5 Acquired absence of kidney; Z79.899 Other long term (current) drug therapy
CPT/HCPCS: 74176; 80048; 80076; 83690; 85025; 96361; 96374; 99283; J7030; A4216; J2405

== ENCOUNTER → 2024-03-10 | Outpatient (CLI) | payer BC, SELFPAY ==
--- NOTE | 2024-03-10 07:49 | RAD_ITS ---
STUDY: X-RAY CHEST REASON FOR EXAM: Male, 53 years old. HX OF RENAL CA TECHNIQUE: PA and lateral views of the chest. COMPARISON: Comparison is made with prior study dated October 19, 2017. FINDINGS: The lungs are clear and expanded. There is no demonstrated pleural abnormality. Normal size heart. Normal mediastinum and rogelio. Normal visualized pulmonary arteries. Normal visualized aortic arch and descending thoracic aorta. Normal visualized thoracic spine. Normal visualized ribs, clavicles, and shoulders. There is no demonstrated abnormality of the visualized soft tissue structures of the upper abdomen. RAD/Chest PA and Lateral IMPRESSION: Normal x-ray examination of the chest. Electronically Signed: Altaf Leger MD at 10:27 EDT ,
--- NOTE | 2024-03-10 07:49 | CT_ITS ---
STUDY: CT ABDOMEN AND PELVIS WITH CONTRAST REASON FOR EXAM: Male, 53 years old. HX OF KIDNEY CA RADIATION DOSAGE (If Supplied By Facility): CTDIvol = ( 14.59 ) mGy, DLP = ( 885.96 ) mGycm TECHNIQUE: Transaxial images were obtained from the dome of the diaphragm to the symphysis pubis without oral contrast. IV 75mL [id number] was administered. Sagittal and coronal images were reconstructed. Individualized dose optimization techniques were used for this CT. COMPARISON: Comparison is made with prior study dated May 26, 2018. FINDINGS: Persistent mild increased linear markings at the lung bases suggestive of scarring. No significant coronary calcification is seen. Normal liver. Normal gallbladder and extrahepatic biliary system. Normal spleen. Normal pancreas. Once again, surgical clips are seen in the region of the right adrenal gland. The right adrenal gland is not seen. There is a 1.5 cm x 1.7 cm cyst in the anterior midportion of the right kidney. A 1 cm cyst is seen adjacent. There is a cortical thinning in keeping with prior resection of the lateral aspect of the lower pole of the right kidney. Several cysts are seen in the left kidney. Normal visualized stomach. Normal small intestine. Normal colon. The appendix is visualized and appears normal. Normal abdominal aorta. Normal inferior vena cava. Normal retroperitoneum. Normal urinary bladder. There are prostatic calcifications. Mild prostatic enlargement. Normal abdominal wall. Loss of the normal lumbar lordosis. CT/Abdomen/Pelvis WITH Contrast IMPRESSION: Status post resection of the mass in the lateral aspect of the lower pole of the right kidney. Bilateral renal cysts. Electronically Signed: Altaf Leger MD at 15:28 EDT ,
== END | disposition home or self-care (01) ==
LOC: CT 07:45
PROVIDERS: PCP Legal Medicine; Referring Provider Internal Medicine Medical Oncology; Visit Provider Internal Medicine Medical Oncology
DX: Z85.528 Personal history of other malignant neoplasm of kidney (principal)
CPT/HCPCS: 71046; 74177; Q9967